=== PATIENT | female | born 1965 | race Asian ===

== ENCOUNTER 2019-10-04 12:16 | Emergency (ER) | payer BC ==
[~2019-10-04] VITALS: Ht 162.6 cm; Wt 106.8 kg
[2019-10-04 12:38] VITALS: TEMP 97.5
[2019-10-04 14:36] VITALS: BP 169/97
== END 2019-10-04 14:36 | disposition home or self-care (01) ==
LOC: ED 12:16
DX: J11.1 Influenza due to unidentified influenza virus with other respiratory manifestations (principal)
CPT/HCPCS: 87502; 87651; 99283

== ENCOUNTER 2023-05-18 10:05 | Emergency (ER) | payer BC ==
[~2023-05-18] VITALS: Ht 162.6 cm; Wt 117.9 kg
[2023-05-18 10:10] VITALS: TEMP 97.3
[2023-05-18 10:47] LABS: PLATELET COUNT 242 K/uL (152-353); POTASSIUM 3.3 mmol/L (3.6-5.2)
[2023-05-18 11:20] VITALS: BP 130/74
== END 2023-05-18 11:22 | disposition home or self-care (01) ==
LOC: ED 10:05
PROVIDERS: Family Medicine
DX: I10 Essential (primary) hypertension (principal); Z91.148 Patient's other noncompliance with medication regimen for other reason
CPT/HCPCS: 80053; 84484; 85027; 93005; 99283